=== PATIENT | female | born 1975 | race African-American/Black ===

== ENCOUNTER 2016-06-19 13:48 | Emergency (ER) | payer SELFPAY ==
[2016-06-19 12:31] LABS: ASCORBIC ACID (UR NOT ORDER) NEG (NEG); BILIRUBIN, URINE NEGATIVE (NEG); ER URINALYSIS TAT 0 Hrs 14 Mins; KETONE, URINE NEGATIVE (NEG); LEUKOCYTE ESTERASE(NOT OR TRACE (NEG); NITRITE (URINE) NEG (NEG); WBC (NOT ORDERED) (RFLEX) 3 (0-5)
[2016-06-19 15:28] LABS: CHLAMYDIA TRACH PCR NOT DETECTED (NOT DETEC); GC PCR NOT DETECTED (NOT DETECT); SOURCE: FEMALE URINE
== END 2016-06-19 13:59 | disposition home or self-care (01) ==
LOC: ER 13:48
PROVIDERS: Nurse Practitioner
DX: N76.0 Acute vaginitis (principal); F17.200 Nicotine dependence, unspecified, uncomplicated
CPT/HCPCS: 81001; 84703; 87491; 87591; 96372; 99283; A9270-GY; J0696